=== PATIENT | female | born 1970 | race Hispanic/Latino ===

== ENCOUNTER 2016-09-10 08:34 | Emergency (ER) | payer SELFPAY ==
[2016-09-10 08:37] VITALS: BMI 41.5
--- NOTE | 2016-09-10 11:15 | C.PDOC ---
History Of Present Illness <Aida Fontenot - Last Filed: 09/10/16 16:20> <Bandar Ashley - Last Filed: 09/10/16 16:39> 45 year old patient presents to the ED complaining of lower lip swelling since this morning. Patient states she has been taking Prednisone and Tessalon for the past 2 days. Yesterday, she developed hives. She took Benadryl last night, but work up this morning with her lower lip swollen. Patient denies throat tightness or difficulty breathing. (Aida Fontenot) History Per: Patient History/Exam Limitations: no limitations Onset/Duration Of Symptoms: Days (1) Current Symptoms Are (Timing): Still Present Context: Other Possible Cause: Medication Associated Symptoms: Swelling Home/EMS Treatment: Benadryl Severity: Mild Pain Scale Rating Of: 3 Recent travel outside of the [place]: No <Aida Fontenot - Last Filed: 09/10/16 16:20> <Bandar Ashley - Last Filed: 09/10/16 16:39> Time Seen by Provider: 09/10/16 08:51 Chief Complaint (Nursing): Allergic Reaction Past Medical History Reviewed: Historical Data, Nursing Documentation, Vital Signs Family History: States: Unknown Family Hx - Social History Hx Alcohol Use: Yes Hx Substance Use: No - Immunization History Hx Tetanus Toxoid Vaccination: No Hx Influenza Vaccination: No Hx Pneumococcal Vaccination: No <Aida Fontenot - Last Filed: 09/10/16 16:20> Vital Signs: Last Vital Signs Temp 98.1 F 09/10/16 15:45 Pulse 69 09/10/16 15:45 Resp 18 09/10/16 15:45 BP 135/77 09/10/16 15:45 Pulse Ox 97 09/10/16 16:24 Review Of Systems Except As Marked, All Systems Reviewed And Found Negative. ENT: Positive for: Other (lower lip swelling). Negative for: Throat Swelling Respiratory: Negative for: Shortness of Breath <Aida Fontenot - Last Filed: 09/10/16 16:20> Physical Exam - Physical Exam Appears: Non-toxic, No Acute Distress Skin: Warm, Dry, Other (diffuse urticaria) Head: Atraumatic, Normacephalic Eye(s): bilateral: Normal Inspection, PERRL, EOMI Nose: Normal Oral Mucosa: Moist Tongue: Normal Appearing, No Swelling Lips: Swelling (lower lip), No Erythema Throat: Normal, No Erythema, No Exudate Neck: Normal ROM, Supple Chest: Symmetrical Cardiovascular: Rhythm Regular Respiratory: Normal Breath Sounds, No Accessory Muscle Use, No Rales, No Rhonchi , No Wheezing Extremity: Normal ROM Neurological/Psych: Oriented x3, Normal Speech, Normal Cognition Gait: Steady <Aida Fontenot - Last Filed: 09/10/16 16:20> ED Course And Treatment - Laboratory Results Result Diagrams: 09/10/16 13:36 09/10/16 13:23 O2 Sat by Pulse Oximetry: 97 (RA) Pulse Ox Interpretation: Normal Progress Note: Plan: -Benadryl, Pepcid. --Reassess and disposition. On re- evaluation, pt remains stable. On re-evaluation, pt notes upper lip started to swell. Solumedrol ordered. Case discussed with Dr Ashley who evaluated pt and agreed upon plan and treatment. On re-evalation, pt denies any difficulty breathing or swallowing. Reassessment: Patient is resting comfortably, tolerating PO, has no shortness of breath, has no stridor. Lips remains mildly swollen. PT was offered admission. PT adamently refuses admission noting she feels well and would like to go home. CAse discussed and pt re-evaluated by Dr Ashley, agreed upon treatment and discharge. Patient was advised to avoid potential allergens, and to follow up with physician in 1-2 days. <Aida Fontenot - Last Filed: 09/10/16 16:20> - Laboratory Results Result Diagrams: 09/10/16 13:36 09/10/16 13:23 <Bandar Ashley - Last Filed: 09/10/16 16:39> Medical Decision Making <Aida Fontenot - Last Filed: 09/10/16 16:20> <Bandar Ashley - Last Filed: 09/10/16 16:39> Medical Decision Making: pt seen by myself with PA. 45 yo female with angioedema vs allergic rxn x 1 day onset ?related to recent prednisone or cough medication. in er, pt with mild angioedema, lip swelling, no oral swelling, speaking full sentneces in nad. pt given benadryl, solumedrol, observed in er for 7+ hours with improvement. suggested inpt admission to pt for continued iv steriods (as ?allergy to outpt prednisone). pt declines, and insists to go home, and states she will return to er with worsening symptoms or concenrs. as there is no immediate airway concern , pt ambulatory, speaking full sentneces with improvement in symptoms after extended observation in er, will d/c pt, however pt given strict return precautions. discussed in detail at bedside with patient by myself and PA. pt continues to decline observation as inpt, and insists on d/c. (Bandar Ashley) Disposition - Disposition Disposition Time: 11:00 <Aida Fontenot - Last Filed: 09/10/16 16:20> <Bandar Ashley - Last Filed: 09/10/16 16:39> - Disposition Disposition: HOME/ ROUTINE Condition: STABLE Additional Instructions: Follow up with your primary medical doctor or clinic in 2-5 days for further evaluation. Take medications as prescribed. Return to the emergency department at any time if symptoms persist or worsen. Prescriptions: DiphenhydrAMINE [Benadryl] 25 mg PO Q6 #20 cap Epinephrine HCl [Epipen Auto-Injector] 0.3 mg IM ONCE PRN #1 unit PRN Reason: Anaphylaxis Instructions: Urticaria (ED) - Clinical Impression Clinical Impression: Allergic reaction - PA / YARD CONDUCTOR / Resident Statement / has reviewed & agrees with the documentation as recorded. - Scribe Statement The provider has reviewed the documentation as recorded by the Scribe <Aida Fontenot - Last Filed: 09/10/16 16:20> - PA / YARD CONDUCTOR / Resident Statement / has examined the patient and agrees with the treatment plan. (pt seen by myself with PA. 45 yo female with angioedema vs allergic rxn x 1 day onset ? related to recent prednisone or cough medication. in er, pt with mild angioedema , lip swelling, no oral swelling, speaking full sentneces in nad. pt given benadryl, solumedrol, observed in er for 7+ hours with improvement. suggested inpt admission to pt for continued iv steriods (as ?allergy to outpt prednisone) . pt declines, and insists to go home, and states she will return to er with worsening symptoms or concenrs. as there is no immediate airway concern, pt ambulatory, speaking full sentneces with improvement in symptoms after extended observation in er, will d/c pt, however pt given strict return precautions. discussed in detail at bedside with patient by myself and PA. pt continues to decline observation as inpt, and insists on d/c.) <Bandar Ashley - Last Filed: 09/10/16 16:39> - Scribe Statement Neelam Gomez All medical record entries made by the Scribe were at my direction and personally dictated by me. I have reviewed the chart and agree that the record accurately reflects my personal performance of the history, physical exam, medical decision making, and the department course for this patient. I have also personally directed, reviewed, and agree with the discharge instructions and disposition. (Aida Fontenot)
[2016-09-10 12:45] VITALS: RESP 18
[2016-09-10 13:45] LABS: BASO # 0.1 K/uL (0.0-0.2); BASO % 0.5 % (0.0-2.0); EOS # 0.1 K/uL (0.0-0.7); EOS % 1.3 % (0.0-4.0); HEMATOCRIT 40.7 % (34.0-47.0); LYMPH # 2.8 K/uL (1.0-4.3); LYMPH % 27.1 % (20.0-40.0); MEAN CELL VOLUME 84.1 fL (81.0-99.0); MEAN CORPUSCULAR HEMOGLOBIN 27.6 pg (27.0-31.0); MEAN CORPUSCULAR HGB CONC 32.8 g/dL (33.0-37.0); MEAN PLATELET VOLUME 8.6 fL (7.2-11.7); MONO # 0.9 K/uL (0.0-0.8); MONO % 8.4 % (0.0-10.0); RED CELL DISTRIBUTION WIDTH 14.8 % (11.5-14.5); WHITE BLOOD COUNT 10.2 K/uL (4.8-10.8)
[2016-09-10 13:52] LABS: CHLORIDE 101 mmol/L (98-107); SODIUM 135 mmol/L (132-148)
[2016-09-10 13:54] LABS: BILIRUBIN,TOTAL 0.9 mg/dL (0.2-1.3); CARBON DIOXIDE 22 mmol/L (22-30); GFR AFRICAN-AMERICAN > 60
[2016-09-10 13:55] LABS: ALB/GLOB RATIO 1.1 (1.0-2.1); ALKALINE PHOSPHATASE 37 U/L (38-126); ALT/SGPT 42 U/L (9-52); AST/SGOT 48 U/L (14-36); BLOOD UREA NITROGEN 17 mg/dL (7-17); CALCIUM 8.2 mg/dl (8.6-10.4); GLUCOSE,RANDOM 83 mg/dL (65-105); POTASSIUM 4.6 mmol/L (3.6-5.2); TOTAL PROTEIN 6.9 g/dL (6.3-8.3)
[2016-09-10 15:46] VITALS: BP 135/77; PULSE 69; TEMP 98.1; O2SAT 97
== END 2016-09-10 16:02 | disposition home or self-care (01) ==
LOC: C.ER 08:34
DX: T78.40XA Allergy, unspecified, initial encounter (principal); X58.XXXA Exposure to other specified factors, initial encounter
CPT/HCPCS: 80053; 85025; 96374; 99285; J2930

== ENCOUNTER 2016-09-12 09:32 | Emergency (ER) | payer SELFPAY ==
[2016-09-12 09:32] VITALS: BMI 41.5
[2016-09-12 09:54] VITALS: TEMP 98.2; O2SAT 98
--- NOTE | 2016-09-12 10:36 | C.PDOC ---
History Of Present Illness A 46 year old female presents to the emergency room with complaints of a rash with an itching sensation for a few days. Patient reports that she was taking Tessalon over the past 4 days and started to feel itchy 3 days ago. Patient was seen in the ED 2 days ago and was treated with Benadryl and Solu-Medrol. Patient states that she began to feel better, but the rash returned. Patient was given a prescription for an EpiPen but could not fill it due to the meier. Patient denies any shortness of breath, lip swelling, tongue swelling, any difficulty swallowing, fever, or any other complaints. Time Seen by Provider: 09/12/16 10:30 Chief Complaint (Nursing): Allergic Reaction History Per: Patient History/Exam Limitations: no limitations Onset/Duration Of Symptoms: Days (4) Current Symptoms Are (Timing): Still Present Possible Cause: Unknown Associated Symptoms: Skin Rash, Itching. denies: Swelling, Trouble Swallowing Home/EMS Treatment: Benadryl Severity: Mild Past Medical History Reviewed: Historical Data, Nursing Documentation, Vital Signs Vital Signs: Last Vital Signs Temp 98.2 F 09/12/16 09:42 Pulse 68 09/12/16 11:44 Resp 20 09/12/16 11:44 BP 100/70 09/12/16 11:44 Pulse Ox 98 09/12/16 12:29 Family History: States: Unknown Family Hx - Social History Hx Alcohol Use: Yes Hx Substance Use: No - Immunization History Hx Tetanus Toxoid Vaccination: No Hx Influenza Vaccination: No Hx Pneumococcal Vaccination: No Review Of Systems Except As Marked, All Systems Reviewed And Found Negative. Constitutional: Negative for: Fever ENT: Negative for: Mouth Swelling, Throat Swelling, Other (No lip swelling. No tongue swelling. No difficulty swallowing.) Respiratory: Negative for: Shortness of Breath Skin: Positive for: Rash (Diffuse rash) Physical Exam - Physical Exam Appears: Well, Non-toxic Skin: Rash (Diffuse urticaria) Head: Atraumatic, Normacephalic, No Swelling Eye(s): bilateral: Normal Inspection, PERRL, EOMI Ear(s): Bilateral: Normal Nose: Normal, No Discharge Oral Mucosa: Moist Tongue: Normal Appearing, No Swelling, No Erythema Lips: Normal Appearing, No Swelling, No Erythema Throat: Normal, No Erythema, No Exudate Neck: Normal ROM, Supple Cardiovascular: Rhythm Regular Respiratory: Normal Breath Sounds, No Rales, No Rhonchi, No Wheezing Gastrointestinal/Abdominal: Soft, No Tenderness Extremity: Normal ROM, No Tenderness Neurological/Psych: Oriented x3, Normal Speech ED Course And Treatment O2 Sat by Pulse Oximetry: 98 Progress Note: Patient given IV Benadryl, Pepcid, & Solu-Medrol. On reevaluation , patient is resting comfortably, tolerating PO, has no shortness of breath, has no intra-oral swelling, no stridor. Patient notes that pruritus has improved. Patient will be prescribed steroids. Patient was advised to avoid potential allergens, and to follow up with physician in 1-2 days. Disposition - Disposition Referrals: [facility] [Outside] [facility] [Outside] Disposition: HOME/ ROUTINE Disposition Time: 12:26 Condition: IMPROVED Additional Instructions: Follow up with your PMD/Clinic within 1-2 days. Return to ED if feel worse. Prescriptions: hydrOXYzine HCl [Atarax] 25 mg PO Q6H #30 tab Famotidine [Pepcid] 20 mg PO BID #20 tab predniSONE [predniSONE Tab] 2 tab PO DAILY #8 tab Instructions: Urticaria (ED) Forms: Work Excuse - Clinical Impression Clinical Impression: Allergic urticaria - Scribe Statement The provider has reviewed the documentation as recorded by the Nandini Villagomez Provider Scribe Attestation: All medical record entries made by the Scribe were at my direction and personally dictated by me. I have reviewed the chart and agree that the record accurately reflects my personal performance of the history, physical exam, medical decision making, and the department course for this patient. I have also personally directed, reviewed, and agree with the discharge instructions and disposition.
[2016-09-12] MEDS ORDERED: DiphenhydrAMINE 50 mg/ml Inj IVP STA (10:41)
[2016-09-12] MEDS ORDERED: DiphenhydrAMINE 50 mg/ml Inj ONE (10:47)
[2016-09-12 11:45] VITALS: BP 100/70; PULSE 68; RESP 20
== END 2016-09-12 12:59 | disposition home or self-care (01) ==
LOC: C.ER 09:32
DX: L50.0 Allergic urticaria (principal)
CPT/HCPCS: 96374; 96375; 99284; J1200; J2930